=== PATIENT | female | born 1995 | race American Indian/Alaskan Native ===

== ENCOUNTER 2018-12-12 10:09 | Emergency (ER) | payer SELFPAY ==
[2018-12-12] MEDS ORDERED: NORCO 5/325 PO ONE (11:57)
--- NOTE | 2018-12-12 12:34 | XRay Report ---
CERVICAL SPINE RADIOGRAPHS INDICATION: Neck pain. COMPARISON: None similar at this institution. FINDINGS: AP, lateral and open-mouth views of the cervical spine demonstrate normal imaged dens with symmetric lateral masses. Dental braces incidentally noted. Intact craniocervical articulation on the lateral view with normal prevertebral soft tissues and airway. Normal vertebral body stature and disc heights. Straightening noted, possibly positional versus spasm. Small bilateral cervical ribs may be present. Clear imaged lung apices. CONCLUSION: Cervical spine straightening and small bilateral cervical ribs, as described. Please correlate. Thank you for the opportunity to participate in this patient's care.
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
[2018-12-12 13:57] LABS: HCG Qualitative,Urine Negative (Negative)
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
[2018-12-12 15:46] VITALS: BP 128/85
== END 2018-12-12 15:28 | disposition home or self-care (01) ==
LOC: ED 10:09
DX: S16.1XXA Strain of muscle, fascia and tendon at neck level, initial encounter (principal); H11.32 Conjunctival hemorrhage, left eye; S00.03XA Contusion of scalp, initial encounter; S00.511A Abrasion of lip, initial encounter; S00.83XA Contusion of other part of head, initial encounter; J45.909 Unspecified asthma, uncomplicated; Z88.0 Allergy status to penicillin; Y04.0XXA Assault by unarmed brawl or fight, initial encounter; Y93.89 Activity, other specified; Y92.89 Other specified places as the place of occurrence of the external cause; Y99.8 Other external cause status
CPT/HCPCS: 70450; 70480; 70486; 72040; 81025